=== PATIENT | female | born 1980 | race Hispanic/Latino ===

== ENCOUNTER 2019-07-08 17:48 | Day surgery (SDC) | payer OTHER ==
[2019-07-08 18:55] VITALS: TEMP 98.2; BMI 29.0
[2019-07-08] MEDS ORDERED: hydrALAZINE 20 MG/ML VIAL SLOW IVP PRN (19:04)
--- NOTE | 2019-07-08 19:07 | PDOC.LDHP ---
Labor and Delivery H&P Chief complaint: contractions, other (Brownisg vag dsch) HPI: 39 yo H x3 in past at 39 weeks and 6 dats with EDC tomorrow here for lower pelvic pain and brownisd thick dsch. no LOF, no VB, good FM. Has GDM diet controlled (A1). review of Systems: completed and as per HPI. She does not self check sugars at home Current gestational age (weeks): 39 (6 days) Due date: 07/09/19 Dating criteria: last menstrual period Grav: 4 Para: 3 OB History Details: SVDs at term Current complications: gestational diabetes (A1) Abnormal US findings: No Current medications: pre- vitamins Previous surgical history: none Allergies/Adverse Reactions: Allergies Allergy/AdvReac Type Severity Reaction Status Date / Time No Known Allergies Allergy Unverified 07/08/19 18:34 - Physical Exam Vital signs reviewed and normal: yes (109/66 80s afebrile) General: NAD Heart: RRR Lungs: CTAB Abdomen: gravid Extremeties: no edema FHT: category 1 Uncertain contractions every: No CT - Assessment Full term at 39 weeks 6 days, A1DM...suspect normal changes. Do not suspect LOF. - Plan Plan: observation in L&D (Check CX, check DStick, BPs ok...has induction of labor saturday)
--- NOTE | 2019-07-08 19:13 | PDOC.EVN ---
Event Note - Event Note Event Note: by me is /-1/tosha/GREGORIO No evidence LOF, no VB I suspect early latent labor Check DStick prior to DC
--- NOTE | 2019-07-08 19:15 | PDOC.EVN ---
Event Note - Event Note Event Note: Latent labor and I do not suspect active laboring at this time. OK for outpatient, next visit will be Saturday for IOL Clinically not ruptured and reaction to scalp stimulation
--- NOTE | 2019-07-08 19:17 | PDOC.EVN ---
Event Note - Event Note Event Note: DStick is 91
== END 2019-07-08 19:28 | disposition home or self-care (01) ==
LOC: L&D/OP 17:48
PROVIDERS: ATTEND Family Medicine
DX: O47.1 False labor at or after 37 completed weeks of gestation (principal); O24.410 Gestational diabetes mellitus in pregnancy, diet controlled; Z3A.39 39 weeks gestation of pregnancy
CPT/HCPCS: 36416